=== PATIENT | female | born 1980 | race Caucasian/White ===

== ENCOUNTER 2017-02-15 14:33 | Emergency (ER) | payer OTHER | END 2017-02-15 16:41 | disposition home or self-care (01) | LOC: FER 14:33 | DX: M54.32 Sciatica, left side (principal); F17.210 Nicotine dependence, cigarettes, uncomplicated; Z91.040 Latex allergy status | CPT/HCPCS: 73610; 99283 ==

== ENCOUNTER 2021-01-02 11:38 | Emergency (ER) | payer OTHER ==
[~2021-01-02 11:38] MED LIST: BACLOFEN 10MG T10 MG PO; CLARITIN10 MG PO; FLEXERIL10 MG PO; IBU800 MG PO; MUCINEX 600MG600 MG PO; NAPROXEN500 MG PO
[2021-01-02] MEDS ORDERED: MEDROL 4MG DOSEP4 MG PO (13:32)
[2021-01-02] MEDS ORDERED: VENTOLIN HFA IN18 GM INH (13:32)
== END 2021-01-02 14:19 | disposition home or self-care (01) ==
LOC: FER 11:38
DX: J20.9 Acute bronchitis, unspecified (principal); E78.5 Hyperlipidemia, unspecified; F17.210 Nicotine dependence, cigarettes, uncomplicated; Z79.899 Other long term (current) drug therapy; Z91.040 Latex allergy status
CPT/HCPCS: 71046; 94640

== ENCOUNTER 2021-01-14 09:06 | Emergency (ER) | payer OTHER ==
[~2021-01-14 09:06] MED LIST changes: +MEDROL 4MG DOSEP4 MG PO; +VENTOLIN HFA IN18 GM INH
[2021-01-14] MEDS ORDERED: ROBAXIN750 MG PO (11:29)
[2021-01-14] MEDS ORDERED: NORCO 5-325 TA1 EACH PO (11:29)
== END 2021-01-14 12:07 | disposition home or self-care (01) ==
LOC: FER 09:06
DX: S76.012A Strain of muscle, fascia and tendon of left hip, initial encounter (principal); M79.652 Pain in left thigh; F17.210 Nicotine dependence, cigarettes, uncomplicated; X50.0XXA Overexertion from strenuous movement or load, initial encounter; Y93.41 Activity, dancing; Y92.89 Other specified places as the place of occurrence of the external cause
CPT/HCPCS: 73502; J1885

== ENCOUNTER 2021-07-20 13:29 | Emergency (ER) | payer OTHER ==
[~2021-07-20 13:29] MED LIST changes: +NORCO 5-325 TA1 EACH PO; +ROBAXIN750 MG PO
[2021-07-21] MEDS ORDERED: COLACE100 MG PO (13:12)
[2021-07-23] MEDS ORDERED: ANUCORT-HC25 MG PR (16:58)
== END 2021-07-20 14:03 | disposition left against medical advice (07) ==
LOC: FER 13:29
DX: Z53.21 Procedure and treatment not carried out due to patient leaving prior to being seen by health care provider (principal)

== ENCOUNTER 2021-07-21 09:18 | Emergency (ER) | payer OTHER ==
[2021-07-21] MEDS ORDERED: COLACE100 MG PO (13:12)
[2021-07-23] MEDS ORDERED: ANUCORT-HC25 MG PR (16:58)
== END 2021-07-21 13:08 | disposition home or self-care (01) ==
LOC: FER 09:18
DX: M77.8 Other enthesopathies, not elsewhere classified (principal); K64.5 Perianal venous thrombosis; J45.909 Unspecified asthma, uncomplicated; Z91.040 Latex allergy status
CPT/HCPCS: 99283

== ENCOUNTER 2021-07-23 16:10 | Emergency (ER) | payer OTHER | END 2021-07-23 17:07 | disposition home or self-care (01) | LOC: FER 16:10 | DX: K64.4 Residual hemorrhoidal skin tags (principal); J45.909 Unspecified asthma, uncomplicated; Z91.040 Latex allergy status ==